=== PATIENT | male | born 2000 | race Caucasian/White ===

== ENCOUNTER 2021-08-22 05:30 | Emergency (ER) | payer BC ==
[~2021-08-22] VITALS: Ht 185.4 cm; Wt 84.1 kg
[2021-08-22 05:39] VITALS: TEMP 98.1
[2021-08-22] MEDS ORDERED: NORCO 325 MG-51 TAB PO (06:29)
[2021-08-22 07:36] VITALS: BP 136/86; PULSE 90
== END 2021-08-22 07:39 | disposition home or self-care (01) ==
LOC: COL.ER 05:30
DX: S50.02XA Contusion of left elbow, initial encounter (principal); V00.131A Fall from skateboard, initial encounter

== ENCOUNTER 2021-10-03 08:34 | Emergency (ER) | payer BC ==
[~2021-10-03] VITALS: Ht 190.5 cm; Wt 86.4 kg
[~2021-10-03 08:34] MED LIST: NORCO 325 MG-51 TAB PO
[2021-10-03 09:18] LABS: BASO # 0.1 K/mm3 (0.0-0.2); BASO % 1.3 % (0.0-2.0); EOS # 0.4 K/mm3 (0.0-0.7); EOS % 7.4 % (0.0-4.0); GRAN # 2.7 K/mm3 (1.4-6.5); GRAN % 51.4 % (42.2-75.2); HEMATOCRIT 38.7 % (42.0-52.0); LYMPH # 1.5 K/mm3 (1.2-3.4); LYMPH % 28.6 % (20.0-51.0); MEAN CELL VOLUME 89 fl (80.0-100.0); MEAN CORPUSCULAR HEMOGLOBIN 30 pg (27-31); MEAN CORPUSCULAR HGB CONC 34 g/dl (33.0-37.0); MEAN PLATELET VOLUME 9.9 fl (7.4-10.4); MONO # 0.6 K/mm3 (0.1-0.6); MONO % 10.7 % (1.7-9.3); PLATELET COUNT 211 K/mm3 (130-400); RED BLOOD COUNT 4.37 M/mm3 (4.20-5.60); REDCELL DISTRIBUTION WIDTH-CV 13.1 % (11.5-14.5)
[2021-10-03 09:40] LABS: ALANINE AMINOTRANSFERASE 8 U/L (0-55); ALBUMIN 3.8 gm/dL (3.5-5.0); ALKALINE PHOSPHATASE 83 U/L (40-150); ANION GAP 8 mmol/L (7-16); AST,SGOT 13 U/L (5-34); BILIRUBIN,TOTAL 0.4 mg/dL (0.2-1.2); BLOOD UREA NITROGEN 9 mg/dL (9-21); CALCIUM 8.5 mg/dL (8.4-10.2); CARBON DIOXIDE 22 mmol/L (22-29); CHLORIDE 112 mmol/L (98-107); CREATININE, serum 0.82 mg/dL (0.72-1.25); GLUCOSE 78 mg/dL (70-99); POTASSIUM 3.8 mmol/L (3.5-4.5); SODIUM 142 mmol/L (136-145)
[2021-10-03 09:41] LABS: ACETAMINOPHEN < 1.0 ug/mL (10-30); ALCOHOL(ethanol),MEDICAL < 10 mg/dL (0-10); SALICYLATE < 5.0 mg/dL (15.0-30.0)
[2021-10-03 09:44] LABS: COLLECTION METHOD CLEAN CATCH
[2021-10-03 09:54] LABS: MUCOUS Present (NOT PRESENT); PH 5 (5-8); SQUAMOUS EPITHELIAL 0-2 /hpf (0-10); URINE APPEARANCE Clear (CLEAR/HAZY); URINE BACTERIA None Seen (NONE SEEN); URINE BILIRUBIN Negative (NEGATIVE); URINE BLOOD Negative (NEGATIVE); URINE CALCIUM OXALATE CRYSTAL Present (NOT PRESENT); URINE COLOR Yellow (YELLOW); URINE GLUCOSE Negative (NEGATIVE); URINE KETONE Negative (NEGATIVE); URINE LEUKOCYTE ESTERASE Negative (NEGATIVE); URINE NITRATE Negative (NEGATIVE); URINE PROTEIN(semi-quant) Negative (NEGATIVE); URINE RBC 0-2 /hpf (0-2); URINE UROBILINOGEN Negative (NEGATIVE)
[2021-10-03 10:00] LABS: TRICYCLIC ANTIDEPRESS URINE NEGATIVE
[2021-10-03 22:00] VITALS: TEMP 97.9
[2021-10-04 11:30] VITALS: BP 120/78; PULSE 80
== END 2021-10-04 11:40 | disposition home or self-care (01) ==
LOC: COL.ER 08:34
PROVIDERS: Student in an Organized Health Care Education/Training Program
DX: T43.592A Poisoning by other antipsychotics and neuroleptics, intentional self-harm, initial encounter (principal); Z20.822 Contact with and (suspected) exposure to COVID-19
CPT/HCPCS: J7030